=== PATIENT | male | born 1960 | race Caucasian/White ===

== ENCOUNTER → 2018-09-23 08:57 | Outpatient (CLI) | payer SELFPAY | PROVIDERS: Visit Provider Physician Assistant | DX: Z02.4 Encounter for examination for driving license (principal) ==

== ENCOUNTER 2018-10-14 09:02 | Outpatient (CLI) | payer SELFPAY | END 2018-10-14 10:00 | disposition home or self-care (01) | LOC: UTC.OUT 09:05 | PROVIDERS: Visit Provider Physician Assistant | DX: Z02.4 Encounter for examination for driving license (principal) ==